=== PATIENT | female | born 1995 | race Caucasian/White ===

== ENCOUNTER 2019-11-13 12:19 | Emergency (ER) | payer OTHER ==
[~2019-11-13] VITALS: Ht 162.6 cm; Wt 96.6 kg
--- NOTE | 2019-11-13 12:45 | NUR ---
[id number] C/O SOB, TINGGLING TO BOTH HANDS. TESTED NEGATIVE FOR COVID19 BOTH PARENTS TESTED POSITIVE FOR COVID19. ON ROOM AIR, BREATHING EVENLY AND UNLABORED. CONNECTED TO THE MONITOR AND PULSE OX. KEPT COMFORTABLE, WILL CONTINUE TO MONITOR ACCORDINGLY.
[2019-11-13] MEDS ORDERED: LORAZEPAM 0.5 MG TABLET ONE (12:47)
[2019-11-13] MEDS ORDERED: ACETAMINOPHEN ES 500 MG TABLET ONE (12:47)
[2019-11-13] MEDS: ACETAMINOPHEN ES 500 MG TABLET PO ONE (12:50)
[2019-11-13] MEDS: LORAZEPAM 1 MG TABLET PO ONE (12:50)
--- NOTE | 2019-11-13 13:13 | NUR ---
patient signed waiver. [facility] at bedside for x-ray
[2019-11-13 14:18] VITALS: BP 140/81
--- NOTE | 2019-11-13 14:19 | NUR ---
Patient discharged to home in stable condition. Written and verbal after care instructions given. Patient verbalizes understanding of instruction.
== END 2019-11-13 14:19 | disposition home or self-care (01) ==
LOC: ER 12:23
DX: J12.89 Other viral pneumonia (principal); F41.9 Anxiety disorder, unspecified; R50.9 Fever, unspecified; Z88.6 Allergy status to analgesic agent
CPT/HCPCS: 71045-TC